=== PATIENT | male | born 1995 | race African-American/Black ===

== ENCOUNTER 2018-01-19 02:07 | Inpatient (IN) ==
[2018-01-19 02:27] LABS: Baso % (Auto) 0.3 % (0.0-2.0); Eos # (Auto) 0.1 th/mm3 (0.0-0.4); Eos % (Auto) 1.1 % (0.0-4.0); Hematocrit 41.6 % (39.0-51.0); Hemoglobin 13.6 gm/dL (13.0-17.0); Lymph % (Auto) 52.1 % (9.0-44.0); Mean Corpuscular HGB Conc 32.6 % (32.0-36.0); Mean Corpuscular Hemoglobin 30.7 pg (27.0-34.0); Mean Platelet Volume 7.6 fL (7.0-11.0); Mono # (Auto) 0.8 th/mm3 (0.0-0.9); Mono % (Auto) 10.9 % (0.0-8.0); Neut # (Auto) 2.7 th/mm3 (1.8-7.7); Neut % (Auto) 35.6 % (16.0-70.0); Platelet Count 296 th/mm3 (150-450); Red Blood Count 4.42 mil/mm3 (4.50-5.90); Red Cell Distribution Width 13.6 % (11.6-17.2); White Blood Count 7.7 th/mm3 (4.0-11.0)
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
[2018-01-19 02:37] LABS: Activated Partial Thrombo Time 21.7 sec (24.3-30.1); INR 1.1 Ratio; Prothrombin Time 11.4 sec (9.8-11.6)
[2018-01-19] MEDS ORDERED: Midazolam Inj 5 MG/ML 1 ML Vial ONE (02:40)
[2018-01-19] MEDS ORDERED: Heparin - SQ 10,000 UNITS/ML Vial SQ ONE (02:50)
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
[2018-01-19] MEDS ORDERED: ceFAZolin 2 GM IV; once IV.SIG ONE (03:00)
[2018-01-19] MEDS ORDERED: Diphtheria/Tetanus/Pertussis Vaccine Inj 0.5 ML Syringe IM ONE (03:00)
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
[2018-01-19 03:16] LABS: Carbon Dioxide 17.5 meq/L (21.0-32.0); Potassium 3.1 meq/L (3.5-5.1)
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
[2018-01-19] MEDS ORDERED: Heparin 10,000 UNITS/10 ML Vial (for IV use) ONE ×2 (03:28→04:13)
[2018-01-19] MEDS ORDERED: Propofol 1000 mg/100 ml Inj 1,000 MG/100 ML BOTTLE ONE (03:35)
[2018-01-19] MEDS ORDERED: fentaNYL Citrate Inj 100 MCG/2 ML Ampul ONE (03:47)
[2018-01-19 03:55] LABS: Baso % (Auto) 0.1 % (0.0-2.0); Eos % (Auto) 0.2 % (0.0-4.0); Hemoglobin 11.7 gm/dL (13.0-17.0); Mean Corpuscular HGB Conc 32.6 % (32.0-36.0); Mean Corpuscular Hemoglobin 29.4 pg (27.0-34.0); Mean Corpuscular Volume 90.1 fL (80.0-100.0); Mean Platelet Volume 7.4 fL (7.0-11.0); Mono # (Auto) 1.8 th/mm3 (0.0-0.9); Neut % (Auto) 75.7 % (16.0-70.0); Platelet Count 134 th/mm3 (150-450); Red Cell Distribution Width 14.5 % (11.6-17.2); White Blood Count 19.9 th/mm3 (4.0-11.0)
[2018-01-19 04:06] LABS: Activated Partial Thrombo Time 26.1 sec (24.3-30.1); INR 1.3 Ratio; Prothrombin Time 13.4 sec (9.8-11.6)
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
[2018-01-19 04:14] LABS: Calcium 7.7 mg/dL (8.5-10.1); Carbon Dioxide 18.6 meq/L (21.0-32.0); Potassium 4.2 meq/L (3.5-5.1)
[2018-01-19 04:28] LABS: ABG PCO2 43 mmHg (38-42); ABG PO2 255 mmHG (61-120)
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
[2018-01-19] MEDS ORDERED: HYDROmorphone PF Inj 2 MG/ML Vial ONE (06:03)
[2018-01-19] MEDS ORDERED: HYDROmorphone PF Inj 2 MG/ML Vial IV.PUSH SCH (06:10)
[2018-01-19] MEDS: fentaNYL 10 mcg/mL Premix Drip 2,500 MCG/250 ML BAG IV.SIG PRN ×2 (06:31→18:06)
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
[2018-01-19 06:51] LABS: ABG Base Excess -3.9 mmol/L (-2-2); ABG PCO2 39 mmHg (38-42); ABG PO2 230 mmHG (61-120)
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
[2018-01-19 07:10] LABS: Hematocrit 33.2 % (39.0-51.0); Hemoglobin 11.5 gm/dL (13.0-17.0)
[2018-01-19] MEDS: Pantoprazole Inj 40 MG Vial IV.PUSH SCH (08:39)
[2018-01-19] MEDS ORDERED: Propofol Inj 500 MG/50 ML Vial ONE (10:09)
--- NOTE | 2018-01-19 10:14 | ECG ---
Date Performed: 01/19/2018 Time Performed: 07:58:27 PTAGE: 89 years EKG: SINUS TACHYCARDIA ST / T-WAVE ABNORMALITY, CONSIDER LATERAL ISCHEMIA, CANNOT RULE OUT ACUTE LATERAL INJURY PATTERN ABNORMAL ECG NO PREVIOUS TRACING DOCTOR: Brennan Leon Interpretating Date/Time 01/19/2018 10:13:18
[2018-01-19] MEDS ORDERED: Potassium Phosphate 500 MG Soluble Tablet PO PRN ×2 (10:23)
[2018-01-19] MEDS ORDERED: Magnesium Sulfate Inj 2 GM in Sodium Chlor 0.9% Inj 96 ML IV.SIG PRN (10:23)
[2018-01-19] MEDS ORDERED: Potassium Chloride 25 MEQ Effervescent Tablet PO PRN (10:23)
[2018-01-19] MEDS ORDERED: Potassium Phosphate Inj 30 MMOL in Sodium Chlor 0.9% Inj 250 ML IV.SIG PRN (10:23)
[2018-01-19] MEDS ORDERED: Magnesium Sulfate Inj 4 GM in Sodium Chlor 0.9% Inj 92 ML IV.SIG PRN (10:23)
[2018-01-19] MEDS ORDERED: Sodium Phosphate Inj 30 MMOL in Sodium Chlor 0.9% Inj 250 ML IV.SIG PRN (10:23)
[2018-01-19] MEDS ORDERED: Potassium Chlor 40 mEq Premix 40 MEQ/100 ML PIGGYBACK IV.SIG PRN ×2 (10:23)
[2018-01-19] MEDS ORDERED: Magnesium Oxide 400 MG Tablet PO PRN (10:23)
[2018-01-19] MEDS ORDERED: Potassium Chlor 20 mEq Premix 20 MEQ/100 ML PIGGYBACK IV.SIG PRN ×2 (10:23)
[2018-01-19 11:17] LABS: Hematocrit 32.1 % (39.0-51.0); Hemoglobin 11.2 gm/dL (13.0-17.0)
[2018-01-19] MEDS: Propofol 1000 mg/100 ml Inj 1,000 MG/100 ML BOTTLE IV.CONT PRN ×4 (11:44→22:22)
[2018-01-19] MEDS ORDERED: Lidocaine PF 1% Inj 5 ML Syringe INFILTRATN ONE (12:00)
[2018-01-19] MEDS ORDERED: Succinylcholine Inj 200 MG/10 ML Vial IV.PUSH ONE (12:00)
[2018-01-19] MEDS ORDERED: Phenylephrine/NS 1000 MCG/10ML Syringe IV.PUSH ONE (12:00)
[2018-01-19] MEDS ORDERED: NORMOSOL R PH IV.CONT ONE (12:00)
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
[2018-01-19 17:32] LABS: Hematocrit 30.1 % (39.0-51.0); Hemoglobin 10.7 gm/dL (13.0-17.0)
[2018-01-19 19:09] LABS: Amphetamine Screen,Urine Neg (Neg); Barbiturate Screen,Urine Neg (Neg); Cannabinoid Screen,Urine Neg (Neg); Cocaine Screen,Urine Neg (Neg)
[2018-01-19 19:11] LABS: Amorphous Sediment,Urine Occasional /hpf; Bilirubin,Urine Negative (Negative); Clarity,Urine Turbid (Clear); Color,Urine Yellow (Yellw/Straw); Glucose,Urine (UA) Negative (Negative); Leukocyte Esterase,Urine Negative (Negative); Mucus,Urine Few /lpf (Occasional); Nitrite,Urine Negative (Negative); Specific Gravity,Urine 1.033 (1.002-1.035)
[2018-01-19 19:18] LABS: Opiate Screen,Urine Neg (Neg)
[2018-01-19] MEDS: Oral Hygiene Kit OROPHARYNG SCH (22:20)
[2018-01-19] MEDS: Famotidine 20 MG Tablet PO SCH ×2 (22:20→22:23)
[2018-01-19] MEDS: Senna/Docusate Sodium 8.6/50 MG Tablet PO SCH ×2 (22:20→22:24)
[2018-01-19] MEDS: Chlorhexidine 0.12% Oral Kit 15 ML UDC OROPHARYNG SCH (22:22)
[2018-01-20] MEDS ORDERED: Midazolam 50 MG/50 ML Inj 50 MG/50 ML BAG IV.CONT PRN (01:09)
[2018-01-20] MEDS: Oral Hygiene Kit OROPHARYNG SCH ×3 (01:40→20:18)
[2018-01-20] MEDS: Propofol 1000 mg/100 ml Inj 1,000 MG/100 ML BOTTLE IV.CONT PRN ×4 (01:41→08:47)
[2018-01-20] MEDS ORDERED: Chlorhexidine Gluconate 2% 1 Pack (2 Cloths) TOPICAL PRN (04:00)
[2018-01-20 04:28] LABS: Baso % (Auto) 0.1 % (0.0-2.0); Hematocrit 29.5 % (39.0-51.0); Hemoglobin 10.1 gm/dL (13.0-17.0); Lymph % (Auto) 13.4 % (9.0-44.0); Mean Corpuscular HGB Conc 34.3 % (32.0-36.0); Mean Corpuscular Hemoglobin 29.5 pg (27.0-34.0); Mean Corpuscular Volume 86.2 fL (80.0-100.0); Mono # (Auto) 2.5 th/mm3 (0.0-0.9); Mono % (Auto) 16.3 % (0.0-8.0); Neut # (Auto) 10.7 th/mm3 (1.8-7.7); Neut % (Auto) 70.2 % (16.0-70.0); Platelet Count 105 th/mm3 (150-450); Red Blood Count 3.42 mil/mm3 (4.50-5.90); White Blood Count 15.2 th/mm3 (4.0-11.0)
[2018-01-20 04:58] LABS: Albumin 2.6 g/dL (3.4-5.0); Calcium 7.3 mg/dL (8.5-10.1); Carbon Dioxide 25.1 meq/L (21.0-32.0); Total Protein 5.6 g/dL (6.4-8.2)
[2018-01-20 05:26] LABS: Platelet Morphology Normal (Normal)
[2018-01-20 05:45] LABS: ABG PCO2 37 mmHg (38-42); ABG PO2 227 mmHg (61-120)
[2018-01-20] MEDS: Enoxaparin Inj 40 MG/0.4 ML Syringe SQ SCH (05:55)
[2018-01-20] MEDS: Chlorhexidine Gluconate 2% 1 Pack (2 Cloths) TOPICAL SCH (05:57)
[2018-01-20] MEDS: fentaNYL 10 mcg/mL Premix Drip 2,500 MCG/250 ML BAG IV.SIG PRN (06:43)
[2018-01-20] MEDS: Pantoprazole Inj 40 MG Vial IV.PUSH SCH (08:47)
[2018-01-20] MEDS: Senna/Docusate Sodium 8.6/50 MG Tablet PO SCH ×2 (08:47→20:21)
[2018-01-20] MEDS: Famotidine 20 MG Tablet PO SCH ×2 (08:47→20:21)
[2018-01-20] MEDS: Dexmedetomidine Inj 200 MCG in Sodium Chlor 0.9% Inj 48 ML IV.SIG PRN ×3 (10:40→16:23)
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
[2018-01-20] MEDS: Chlorhexidine 0.12% Oral Kit 15 ML UDC OROPHARYNG SCH (20:20)
[2018-01-21] MEDS: Chlorhexidine 0.12% Oral Kit 15 ML UDC OROPHARYNG SCH ×3 (01:13→21:00)
[2018-01-21] MEDS: Oral Hygiene Kit OROPHARYNG SCH ×4 (01:13→15:41)
[2018-01-21] MEDS: fentaNYL 10 mcg/mL Premix Drip 2,500 MCG/250 ML BAG IV.SIG PRN (03:12)
[2018-01-21 04:19] LABS: Baso % (Auto) 0.2 % (0.0-2.0); Eos % (Auto) 0.1 % (0.0-4.0); Hematocrit 25.4 % (39.0-51.0); Hemoglobin 8.7 gm/dL (13.0-17.0); Lymph # (Auto) 2.3 th/mm3 (1.0-4.8); Lymph % (Auto) 14.7 % (9.0-44.0); Mean Corpuscular HGB Conc 34.1 % (32.0-36.0); Mean Corpuscular Hemoglobin 29.6 pg (27.0-34.0); Mean Platelet Volume 7.8 fL (7.0-11.0); Mono # (Auto) 2.4 th/mm3 (0.0-0.9); Mono % (Auto) 15.2 % (0.0-8.0); Neut # (Auto) 10.8 th/mm3 (1.8-7.7); Neut % (Auto) 69.8 % (16.0-70.0); Platelet Count 107 th/mm3 (150-450); Red Blood Count 2.93 mil/mm3 (4.50-5.90); Red Cell Distribution Width 14.4 % (11.6-17.2); White Blood Count 15.4 th/mm3 (4.0-11.0)
[2018-01-21 04:32] LABS: Calcium 7.5 mg/dL (8.5-10.1); Carbon Dioxide 28.5 meq/L (21.0-32.0); Potassium 3.8 meq/L (3.5-5.1)
[2018-01-21 05:18] LABS: Lymphocytes 11 % (9-44); Monocytes 5 % (0-8)
[2018-01-21 05:19] LABS: Platelet Morphology Normal (Normal); Stomatocytes 1+
[2018-01-21] MEDS: Enoxaparin Inj 40 MG/0.4 ML Syringe SQ SCH ×2 (05:30→08:13)
[2018-01-21] MEDS: Chlorhexidine Gluconate 2% 1 Pack (2 Cloths) TOPICAL SCH (06:27)
[2018-01-21] MEDS: Famotidine 20 MG Tablet PO SCH ×2 (09:11→20:29)
[2018-01-21] MEDS: Senna/Docusate Sodium 8.6/50 MG Tablet PO SCH ×2 (09:11→20:29)
[2018-01-21] MEDS: Pantoprazole Inj 40 MG Vial IV.PUSH SCH (09:11)
[2018-01-21] MEDS: HYDROmorphone PF Inj 2 MG/ML Vial IV.PUSH PRN ×3 (13:00→20:29)
[2018-01-21] MEDS: NEED HT & WT OTHER SCH ×21 (15:32→15:58)
[2018-01-21 15:48] LABS: Creatine Kinase MB 2.8 ng/mL (0.5-3.6)
[2018-01-21] MEDS ORDERED: Sodium Chlor 0.9% Inj 250 ML IV.SIG ONE (19:30)
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
[2018-01-21] MEDS: oxyCODONE/Acetaminophen 10/325 Tablet PO PRN (20:29)
[2018-01-22 00:03] LABS: Hemoglobin 7.8 gm/dL (13.0-17.0)
[2018-01-22] MEDS: oxyCODONE/Acetaminophen 10/325 Tablet PO PRN ×3 (00:45→21:01)
[2018-01-22] MEDS: HYDROmorphone PF Inj 2 MG/ML Vial IV.PUSH PRN ×4 (03:33→23:35)
[2018-01-22] MEDS: Chlorhexidine Gluconate 2% 1 Pack (2 Cloths) TOPICAL SCH (03:35)
[2018-01-22 04:24] LABS: Baso % (Auto) 0.2 % (0.0-2.0); Eos # (Auto) 0.1 th/mm3 (0.0-0.4); Eos % (Auto) 0.4 % (0.0-4.0); Hematocrit 22.8 % (39.0-51.0); Hemoglobin 7.7 gm/dL (13.0-17.0); Lymph # (Auto) 2.1 th/mm3 (1.0-4.8); Lymph % (Auto) 14.9 % (9.0-44.0); Mean Corpuscular HGB Conc 33.9 % (32.0-36.0); Mean Corpuscular Hemoglobin 29.7 pg (27.0-34.0); Mean Corpuscular Volume 87.6 fL (80.0-100.0); Mean Platelet Volume 7.9 fL (7.0-11.0); Mono # (Auto) 2.2 th/mm3 (0.0-0.9); Mono % (Auto) 15.4 % (0.0-8.0); Neut % (Auto) 69.1 % (16.0-70.0); Platelet Count 140 th/mm3 (150-450); Red Blood Count 2.61 mil/mm3 (4.50-5.90); Red Cell Distribution Width 14.4 % (11.6-17.2); White Blood Count 14.4 th/mm3 (4.0-11.0)
[2018-01-22 04:53] LABS: Anion Gap 10 meq/L (5-15); Blood Urea Nitrogen 8 mg/dL (7-18); Calcium 8.1 mg/dL (8.5-10.1); Carbon Dioxide 27.1 meq/L (21.0-32.0); Chloride 102 meq/L (98-107); Glomerular Filtration Rate Greater Than 89 mL/min (>89); Glucose,Random 121 mg/dL (74-106); Potassium 3.6 meq/L (3.5-5.1); Sodium 139 meq/L (136-145)
[2018-01-22 05:21] LABS: Creatine Kinase 8076 U/L (39-308)
[2018-01-22 05:36] LABS: Creatine Kinase MB 1.7 ng/mL (0.5-3.6)
[2018-01-22 06:48] LABS: Lymphocytes 14 % (9-44); Monocytes 11 % (0-8)
[2018-01-22 06:49] LABS: Platelet Morphology Normal (Normal)
[2018-01-22] MEDS: Enoxaparin Inj 40 MG/0.4 ML Syringe SQ SCH (08:02)
[2018-01-22] MEDS: Chlorhexidine 0.12% Oral Kit 15 ML UDC OROPHARYNG SCH ×2 (08:38→23:03)
[2018-01-22] MEDS: Famotidine 20 MG Tablet PO SCH ×2 (08:39→21:01)
[2018-01-22] MEDS: Senna/Docusate Sodium 8.6/50 MG Tablet PO SCH ×2 (08:39→21:01)
[2018-01-22] MEDS ORDERED: Sodium Chlor 0.9% Inj 250 ML IV.SIG SCH (10:00)
[2018-01-22] MEDS ORDERED: Lidocaine PF 1% Inj 5 ML Syringe INFILTRATN ONE (12:00)
[2018-01-22] MEDS ORDERED: Glycopyrrolate Inj 1 MG/5 ML Syringe IV.PUSH ONE (12:00)
[2018-01-22] MEDS ORDERED: Neostigmine Inj 5 MG/5 ML Syringe IV.PUSH ONE (12:00)
[2018-01-22] MEDS ORDERED: *morphine SULFATE 4 MG/ML PERIprocedure ONLY ONE ×2 (14:11→15:20)
[2018-01-22] MEDS ORDERED: *Labetalol HCl Inj 100 MG/20 ML Vial PERIprocedural Use ONLY IV.PUSH ONE (14:59)
[2018-01-22] MEDS ORDERED: fentaNYL Citrate Inj 100 MCG/2 ML Ampul ONE (15:41)
[2018-01-22 18:11] LABS: Creatine Kinase MB 1.5 ng/mL (0.5-3.6)
[2018-01-22] MEDS: Ketorolac Inj 30 MG/ML (IVP) Vial IV.PUSH PRN (22:20)
[2018-01-23] MEDS: Enoxaparin Inj 40 MG/0.4 ML Syringe SQ SCH (06:26)
[2018-01-23] MEDS: Ketorolac Inj 30 MG/ML (IVP) Vial IV.PUSH PRN (06:27)
[2018-01-23] MEDS: Chlorhexidine Gluconate 2% 1 Pack (2 Cloths) TOPICAL SCH (06:28)
[2018-01-23] MEDS: HYDROmorphone PF Inj 2 MG/ML Vial IV.PUSH PRN ×3 (09:23→22:00)
[2018-01-23] MEDS: Famotidine 20 MG Tablet PO SCH ×2 (09:26→20:59)
[2018-01-23] MEDS: Senna/Docusate Sodium 8.6/50 MG Tablet PO SCH ×2 (09:27→20:59)
[2018-01-23] MEDS ORDERED: Sodium Chloride 0.65% Nasal Drops/Spray 30 ML Bottle EACH NARE PRN (10:04)
[2018-01-23 10:35] LABS: Baso % (Auto) 0.1 % (0.0-2.0); Eos # (Auto) 0.1 th/mm3 (0.0-0.4); Eos % (Auto) 0.7 % (0.0-4.0); Hematocrit 23.9 % (39.0-51.0); Hemoglobin 8.2 gm/dL (13.0-17.0); Lymph # (Auto) 1.6 th/mm3 (1.0-4.8); Lymph % (Auto) 13.4 % (9.0-44.0); Mean Corpuscular HGB Conc 34.3 % (32.0-36.0); Mean Corpuscular Hemoglobin 29.8 pg (27.0-34.0); Mean Corpuscular Volume 86.9 fL (80.0-100.0); Mean Platelet Volume 7.5 fL (7.0-11.0); Mono # (Auto) 1.7 th/mm3 (0.0-0.9); Mono % (Auto) 14.4 % (0.0-8.0); Neut # (Auto) 8.7 th/mm3 (1.8-7.7); Neut % (Auto) 71.4 % (16.0-70.0); Platelet Count 213 th/mm3 (150-450); Red Blood Count 2.75 mil/mm3 (4.50-5.90); Red Cell Distribution Width 14.2 % (11.6-17.2); White Blood Count 12.2 th/mm3 (4.0-11.0)
[2018-01-23 11:10] LABS: Anion Gap 8 meq/L (5-15); Blood Urea Nitrogen 10 mg/dL (7-18); Calcium 8.4 mg/dL (8.5-10.1); Carbon Dioxide 29.4 meq/L (21.0-32.0); Chloride 103 meq/L (98-107); Glomerular Filtration Rate Greater Than 89 mL/min (>89); Glucose,Random 108 mg/dL (74-106); Potassium 3.5 meq/L (3.5-5.1); Sodium 140 meq/L (136-145)
[2018-01-23 11:15] LABS: Creatine Kinase 4052 U/L (39-308)
[2018-01-23] MEDS: Chlorhexidine 0.12% Oral Kit 15 ML UDC OROPHARYNG SCH (11:23)
[2018-01-23] MEDS: Ketorolac Inj 30 MG/ML (IVP) Vial IV.PUSH SCH ×3 (11:32→21:00)
[2018-01-23] MEDS: Metoprolol Tartrate 25 MG Tablet PO SCH ×2 (11:33→20:58)
[2018-01-23 11:34] LABS: Creatine Kinase MB 1.2 ng/mL (0.5-3.6)
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
[2018-01-23] MEDS: Enoxaparin Inj 30 MG/0.3 ML Syringe SQ SCH (20:58)
[2018-01-24] MEDS: HYDROmorphone PF Inj 2 MG/ML Vial IV.PUSH PRN ×3 (03:25→21:19)
[2018-01-24] MEDS: Ketorolac Inj 30 MG/ML (IVP) Vial IV.PUSH SCH ×5 (03:26→22:54)
[2018-01-24 08:24] LABS: Baso % (Auto) 0.3 % (0.0-2.0); Eos # (Auto) 0.1 th/mm3 (0.0-0.4); Eos % (Auto) 1.2 % (0.0-4.0); Hematocrit 23.8 % (39.0-51.0); Hemoglobin 8.1 gm/dL (13.0-17.0); Lymph # (Auto) 1.7 th/mm3 (1.0-4.8); Lymph % (Auto) 14.5 % (9.0-44.0); Mean Corpuscular HGB Conc 33.9 % (32.0-36.0); Mean Corpuscular Hemoglobin 30.4 pg (27.0-34.0); Mean Corpuscular Volume 89.5 fL (80.0-100.0); Mean Platelet Volume 7.8 fL (7.0-11.0); Mono # (Auto) 1.7 th/mm3 (0.0-0.9); Mono % (Auto) 14.6 % (0.0-8.0); Neut % (Auto) 69.4 % (16.0-70.0); Platelet Count 260 th/mm3 (150-450); Red Blood Count 2.66 mil/mm3 (4.50-5.90); Red Cell Distribution Width 14.4 % (11.6-17.2); White Blood Count 11.5 th/mm3 (4.0-11.0)
[2018-01-24 08:47] LABS: Anion Gap 11 meq/L (5-15); Blood Urea Nitrogen 14 mg/dL (7-18); Calcium 8.4 mg/dL (8.5-10.1); Carbon Dioxide 25.4 meq/L (21.0-32.0); Chloride 102 meq/L (98-107); Glomerular Filtration Rate Greater Than 89 mL/min (>89); Glucose,Random 91 mg/dL (74-106); Potassium 3.6 meq/L (3.5-5.1); Sodium 138 meq/L (136-145)
[2018-01-24 09:02] LABS: Creatine Kinase 2423 U/L (39-308)
[2018-01-24 09:17] LABS: Creatine Kinase MB 1.1 ng/mL (0.5-3.6)
[2018-01-24] MEDS: Enoxaparin Inj 30 MG/0.3 ML Syringe SQ SCH ×2 (09:48→20:22)
[2018-01-24] MEDS: Metoprolol Tartrate 25 MG Tablet PO SCH ×2 (09:48→20:23)
[2018-01-24] MEDS: Famotidine 20 MG Tablet PO SCH ×2 (09:49→20:23)
[2018-01-24] MEDS: amLODIPine 5 MG Tablet PO SCH (09:49)
[2018-01-24] MEDS: Chlorhexidine Gluconate 2% 1 Pack (2 Cloths) TOPICAL SCH (09:49)
[2018-01-24] MEDS: Senna/Docusate Sodium 8.6/50 MG Tablet PO SCH ×2 (09:49→20:22)
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
[2018-01-24] MEDS ORDERED: Chlorhexidine Gluconate 2% 1 Pack (2 Cloths) TOPICAL SCH (23:15)
[2018-01-24] MEDS ORDERED: Sodium Chlor 0.9% Inj 500 ML IV.SIG SCH (23:45)
[2018-01-25] MEDS: Ketorolac Inj 30 MG/ML (IVP) Vial IV.PUSH SCH ×5 (04:02→22:31)
[2018-01-25] MEDS: HYDROmorphone PF Inj 2 MG/ML Vial IV.PUSH PRN ×3 (05:16→20:43)
[2018-01-25 08:26] LABS: CKMB Percent 0.1 % (0.0-4.0)
[2018-01-25] MEDS: Enoxaparin Inj 30 MG/0.3 ML Syringe SQ SCH (09:39)
[2018-01-25] MEDS: Metoprolol Tartrate 25 MG Tablet PO SCH ×2 (09:39→20:43)
[2018-01-25] MEDS: amLODIPine 5 MG Tablet PO SCH (09:39)
[2018-01-25] MEDS: Senna/Docusate Sodium 8.6/50 MG Tablet PO SCH ×2 (09:39→20:43)
[2018-01-25] MEDS: Famotidine 20 MG Tablet PO SCH ×2 (09:39→20:43)
[2018-01-25] MEDS ORDERED: Phenylephrine/NS 1000 MCG/10ML Syringe IV.PUSH ONE (12:00)
[2018-01-25] MEDS ORDERED: Lidocaine PF 1% Inj 5 ML Syringe INFILTRATN ONE (12:00)
[2018-01-25] MEDS ORDERED: HYDROmorphone PF Inj 2 MG/ML Vial ONE (12:45)
[2018-01-25] MEDS ORDERED: ceFAZolin 2 GM Premix Inj 2 GM/50 ML PIGGYBACK IV.SIG ONE (13:07)
--- NOTE | 2018-01-25 13:07 | P.OP ---
- Preoperative Diagnosis (1) Open wound, lower leg - Postoperative Diagnosis (1) Open wound, lower leg Date of procedure: 01/25/18 Procedure: Washout ,wound vac application open wounds x2 left LE Anesthesia: GETA Surgeon: Adeline Diaz MD Estimated blood loss (mL): 5 Operation and Findings: Indication for the procedure:22 y.o male open wound by s/p fasciotomy for compartment syndrome .Proceeded with washout wound VAC application Technique:Patient was brought into the operating room and identified as the patient.After administration of GA ,patient's left LE was sterilely prepped and draped.Wound vac was taken down-muscles were inspected at both wounds.Distally on both wounds there are some slightly dusky appearing muscle- these however are clearly viable.There is large amount of edema and fluid.Washout was performed and wound vac applied using the usual technique.Mo wrap in top of the wound vac.
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
[2018-01-25] MEDS ORDERED: fentaNYL Citrate Inj 100 MCG/2 ML Ampul ONE ×2 (13:12)
[2018-01-25] MEDS ORDERED: Magnesium Citrate Liq 300 ML Bottle PO ONE (15:00)
[2018-01-26 04:13] LABS: Baso % (Auto) 0.2 % (0.0-2.0); Eos # (Auto) 0.1 th/mm3 (0.0-0.4); Eos % (Auto) 0.8 % (0.0-4.0); Hematocrit 24.6 % (39.0-51.0); Hemoglobin 8.3 gm/dL (13.0-17.0); Lymph # (Auto) 1.4 th/mm3 (1.0-4.8); Mean Corpuscular HGB Conc 33.6 % (32.0-36.0); Mean Corpuscular Hemoglobin 29.5 pg (27.0-34.0); Mean Platelet Volume 7.1 fL (7.0-11.0); Mono # (Auto) 1.6 th/mm3 (0.0-0.9); Mono % (Auto) 13.7 % (0.0-8.0); Neut # (Auto) 8.8 th/mm3 (1.8-7.7); Neut % (Auto) 73.3 % (16.0-70.0); Platelet Count 419 th/mm3 (150-450); Red Cell Distribution Width 14.3 % (11.6-17.2); White Blood Count 11.9 th/mm3 (4.0-11.0)
[2018-01-26] MEDS: HYDROmorphone PF Inj 2 MG/ML Vial IV.PUSH PRN ×3 (04:36→23:33)
[2018-01-26] MEDS: Ketorolac Inj 30 MG/ML (IVP) Vial IV.PUSH SCH ×4 (04:36→21:51)
[2018-01-26 04:37] LABS: Anion Gap 10 meq/L (5-15); Blood Urea Nitrogen 16 mg/dL (7-18); Calcium 8.1 mg/dL (8.5-10.1); Carbon Dioxide 26.2 meq/L (21.0-32.0); Chloride 106 meq/L (98-107); Glomerular Filtration Rate Greater Than 89 mL/min (>89); Glucose,Random 112 mg/dL (74-106); Potassium 3.8 meq/L (3.5-5.1); Sodium 142 meq/L (136-145)
[2018-01-26 04:50] LABS: Creatine Kinase 1216 U/L (39-308)
[2018-01-26 05:19] LABS: CKMB Percent 0.1 % (0.0-4.0); Creatine Kinase MB 0.9 ng/mL (0.5-3.6)
[2018-01-26 06:48] LABS: Eosinophils 2 % (0-4); Lymphocytes 7 % (9-44); Metamyelocytes 1 % (0-1); Monocytes 12 % (0-8); Tallied Nucleated RBC 1 (0-0)
[2018-01-26 06:49] LABS: Platelet Estimate Normal (Normal); Platelet Morphology Normal (Normal)
[2018-01-26] MEDS: amLODIPine 5 MG Tablet PO SCH (09:50)
[2018-01-26] MEDS: Famotidine 20 MG Tablet PO SCH ×2 (09:51→21:43)
[2018-01-26] MEDS: Metoprolol Tartrate 25 MG Tablet PO SCH ×2 (09:51→21:42)
[2018-01-26] MEDS: Senna/Docusate Sodium 8.6/50 MG Tablet PO SCH ×2 (09:52→21:42)
[2018-01-26] MEDS: Enoxaparin Inj 30 MG/0.3 ML Syringe SQ SCH ×2 (12:03→21:43)
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
[2018-01-26] MEDS: Acetaminophen 325 MG Tablet PO PRN (21:43)
[2018-01-27] MEDS: Ketorolac Inj 30 MG/ML (IVP) Vial IV.PUSH SCH (05:28)
[2018-01-27] MEDS: Enoxaparin Inj 30 MG/0.3 ML Syringe SQ SCH ×2 (08:23→20:05)
[2018-01-27] MEDS: Famotidine 20 MG Tablet PO SCH ×2 (08:26→20:05)
[2018-01-27] MEDS: amLODIPine 5 MG Tablet PO SCH (08:26)
[2018-01-27] MEDS: Metoprolol Tartrate 25 MG Tablet PO SCH ×2 (08:26→20:05)
[2018-01-27] MEDS: Senna/Docusate Sodium 8.6/50 MG Tablet PO SCH ×2 (08:27→20:05)
[2018-01-27] MEDS: ceFAZolin 2 GM Premix Inj 2 GM/50 ML PIGGYBACK IV.SIG SCH ×2 (11:54→20:06)
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
[2018-01-27] MEDS: HYDROmorphone PF Inj 2 MG/ML Vial IV.PUSH PRN ×2 (13:40→20:07)
[2018-01-27] MEDS ORDERED: Benzocaine/Menthol 15 MG/3.6 MG SF Lozenge BUCCAL PRN (17:46)
[2018-01-27] MEDS: Acetaminophen 325 MG Tablet PO PRN (20:05)
[2018-01-28] MEDS: ceFAZolin 2 GM Premix Inj 2 GM/50 ML PIGGYBACK IV.SIG SCH (03:04)
[2018-01-28] MEDS: HYDROmorphone PF Inj 2 MG/ML Vial IV.PUSH PRN ×6 (03:59→23:50)
[2018-01-28 07:00] LABS: Baso % (Auto) 0.2 % (0.0-2.0); Eos # (Auto) 0.1 th/mm3 (0.0-0.4); Eos % (Auto) 0.7 % (0.0-4.0); Hematocrit 27.5 % (39.0-51.0); Hemoglobin 9.2 gm/dL (13.0-17.0); Lymph # (Auto) 1.4 th/mm3 (1.0-4.8); Mean Corpuscular HGB Conc 33.3 % (32.0-36.0); Mean Corpuscular Hemoglobin 29.2 pg (27.0-34.0); Mean Corpuscular Volume 87.7 fL (80.0-100.0); Mean Platelet Volume 7.2 fL (7.0-11.0); Mono # (Auto) 2.3 th/mm3 (0.0-0.9); Mono % (Auto) 19.5 % (0.0-8.0); Neut # (Auto) 7.8 th/mm3 (1.8-7.7); Neut % (Auto) 67.6 % (16.0-70.0); Platelet Count 659 th/mm3 (150-450); Red Blood Count 3.14 mil/mm3 (4.50-5.90); Red Cell Distribution Width 14.4 % (11.6-17.2); White Blood Count 11.6 th/mm3 (4.0-11.0)
[2018-01-28 07:13] LABS: Calcium 8.5 mg/dL (8.5-10.1); Carbon Dioxide 25.8 meq/L (21.0-32.0); Potassium 4.4 meq/L (3.5-5.1)
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
[2018-01-28 08:24] LABS: Lymphocytes 5 % (9-44); Metamyelocytes 1 % (0-1); Monocytes 26 % (0-8)
[2018-01-28 08:26] LABS: Platelet Morphology Normal (Normal); RBC Morphology Normal (Normal)
[2018-01-28] MEDS: Enoxaparin Inj 30 MG/0.3 ML Syringe SQ SCH ×2 (08:45→20:39)
[2018-01-28] MEDS: amLODIPine 5 MG Tablet PO SCH (08:45)
[2018-01-28] MEDS: Metoprolol Tartrate 25 MG Tablet PO SCH (08:45)
[2018-01-28] MEDS: Famotidine 20 MG Tablet PO SCH ×2 (08:45→20:40)
[2018-01-28] MEDS: Senna/Docusate Sodium 8.6/50 MG Tablet PO SCH ×2 (08:46→20:40)
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
[2018-01-28] MEDS: Gabapentin 300 MG Capsule PO SCH (17:22)
[2018-01-29] MEDS: HYDROmorphone PF Inj 2 MG/ML Vial IV.PUSH PRN ×3 (03:20→21:36)
[2018-01-29 04:47] LABS: Baso % (Auto) 0.2 % (0.0-2.0); Eos % (Auto) 0.2 % (0.0-4.0); Hematocrit 27.9 % (39.0-51.0); Hemoglobin 9.5 gm/dL (13.0-17.0); Lymph # (Auto) 1.9 th/mm3 (1.0-4.8); Lymph % (Auto) 12.9 % (9.0-44.0); Mean Corpuscular HGB Conc 33.9 % (32.0-36.0); Mean Corpuscular Hemoglobin 29.5 pg (27.0-34.0); Mean Platelet Volume 6.9 fL (7.0-11.0); Mono # (Auto) 2.9 th/mm3 (0.0-0.9); Mono % (Auto) 19.6 % (0.0-8.0); Neut # (Auto) 9.8 th/mm3 (1.8-7.7); Neut % (Auto) 67.1 % (16.0-70.0); Platelet Count 637 th/mm3 (150-450); Red Blood Count 3.21 mil/mm3 (4.50-5.90); Red Cell Distribution Width 14.5 % (11.6-17.2); White Blood Count 14.6 th/mm3 (4.0-11.0)
[2018-01-29 05:06] LABS: Calcium 8.5 mg/dL (8.5-10.1); Carbon Dioxide 25.9 meq/L (21.0-32.0); Potassium 4.5 meq/L (3.5-5.1)
[2018-01-29] MEDS: Metoprolol Tartrate 25 MG Tablet PO SCH ×3 (05:17→22:31)
[2018-01-29 05:31] LABS: Lymphocytes 15 % (9-44); Metamyelocytes 3 % (0-1); Monocytes 5 % (0-8)
[2018-01-29 05:32] LABS: Platelet Morphology Normal (Normal)
[2018-01-29] MEDS: Enoxaparin Inj 30 MG/0.3 ML Syringe SQ SCH ×2 (08:09→22:32)
[2018-01-29] MEDS: Senna/Docusate Sodium 8.6/50 MG Tablet PO SCH ×2 (08:10→22:38)
[2018-01-29] MEDS: Gabapentin 300 MG Capsule PO SCH ×3 (08:10→17:18)
[2018-01-29] MEDS: Famotidine 20 MG Tablet PO SCH ×2 (08:12→22:31)
[2018-01-29] MEDS: amLODIPine 5 MG Tablet PO SCH (08:12)
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
[2018-01-29] MEDS ORDERED: Lidocaine PF 1% Inj 5 ML Syringe INFILTRATN ONE (12:00)
[2018-01-29] MEDS ORDERED: Phenylephrine/NS 1000 MCG/10ML Syringe IV.PUSH ONE (12:00)
[2018-01-29] MEDS ORDERED: fentaNYL Citrate Inj 100 MCG/2 ML Ampul ONE (20:51)
[2018-01-29] MEDS ORDERED: *morphine SULFATE 10 MG/ML PERIprocedure ONLY ONE (21:10)
[2018-01-30] MEDS: HYDROmorphone PF Inj 2 MG/ML Vial IV.PUSH PRN ×3 (00:38→14:00)
[2018-01-30 06:26] LABS: Baso % (Auto) 0.1 % (0.0-2.0); Hematocrit 29.5 % (39.0-51.0); Hemoglobin 9.7 gm/dL (13.0-17.0); Lymph # (Auto) 1.4 th/mm3 (1.0-4.8); Lymph % (Auto) 8.5 % (9.0-44.0); Mean Corpuscular HGB Conc 33.1 % (32.0-36.0); Mean Corpuscular Hemoglobin 28.5 pg (27.0-34.0); Mean Corpuscular Volume 86.3 fL (80.0-100.0); Mean Platelet Volume 7.1 fL (7.0-11.0); Mono # (Auto) 2.4 th/mm3 (0.0-0.9); Mono % (Auto) 15.3 % (0.0-8.0); Neut # (Auto) 12.2 th/mm3 (1.8-7.7); Neut % (Auto) 76.1 % (16.0-70.0); Platelet Count 696 th/mm3 (150-450); Red Blood Count 3.42 mil/mm3 (4.50-5.90); Red Cell Distribution Width 14.3 % (11.6-17.2)
[2018-01-30 06:56] LABS: Calcium 8.9 mg/dL (8.5-10.1); Carbon Dioxide 25.6 meq/L (21.0-32.0); Potassium 4.8 meq/L (3.5-5.1)
[2018-01-30] MEDS: Metoprolol Tartrate 25 MG Tablet PO SCH ×2 (08:35→22:54)
[2018-01-30] MEDS: amLODIPine 5 MG Tablet PO SCH (08:35)
[2018-01-30] MEDS: Enoxaparin Inj 30 MG/0.3 ML Syringe SQ SCH ×2 (08:35→22:55)
[2018-01-30] MEDS: Gabapentin 300 MG Capsule PO SCH ×3 (08:35→17:07)
[2018-01-30] MEDS: Famotidine 20 MG Tablet PO SCH ×2 (08:36→22:54)
[2018-01-30] MEDS: Senna/Docusate Sodium 8.6/50 MG Tablet PO SCH ×2 (08:36→22:54)
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
[2018-01-30] MEDS: Ketorolac Inj 30 MG/ML (IVP) Vial IV.PUSH SCH ×2 (18:49→23:00)
[2018-01-31 04:44] LABS: Baso % (Auto) 0.3 % (0.0-2.0); Eos # (Auto) 0.1 th/mm3 (0.0-0.4); Eos % (Auto) 0.4 % (0.0-4.0); Hematocrit 28.6 % (39.0-51.0); Hemoglobin 9.6 gm/dL (13.0-17.0); Lymph % (Auto) 14.7 % (9.0-44.0); Mean Corpuscular HGB Conc 33.6 % (32.0-36.0); Mean Corpuscular Hemoglobin 28.9 pg (27.0-34.0); Mean Corpuscular Volume 86.1 fL (80.0-100.0); Mean Platelet Volume 6.8 fL (7.0-11.0); Mono % (Auto) 15.2 % (0.0-8.0); Neut # (Auto) 9.3 th/mm3 (1.8-7.7); Neut % (Auto) 69.4 % (16.0-70.0); Platelet Count 643 th/mm3 (150-450); Red Blood Count 3.32 mil/mm3 (4.50-5.90); Red Cell Distribution Width 14.6 % (11.6-17.2); White Blood Count 13.4 th/mm3 (4.0-11.0)
[2018-01-31 04:59] LABS: Calcium 8.2 mg/dL (8.5-10.1); Carbon Dioxide 28.6 meq/L (21.0-32.0); Potassium 4.3 meq/L (3.5-5.1)
[2018-01-31] MEDS: Ketorolac Inj 30 MG/ML (IVP) Vial IV.PUSH SCH ×3 (07:23→19:45)
[2018-01-31] MEDS ORDERED: Magnesium Citrate Liq 300 ML Bottle PO ONE (09:00)
[2018-01-31] MEDS: Enoxaparin Inj 30 MG/0.3 ML Syringe SQ SCH ×2 (09:30→21:52)
[2018-01-31] MEDS: Famotidine 20 MG Tablet PO SCH ×2 (09:31→21:53)
[2018-01-31] MEDS: Gabapentin 300 MG Capsule PO SCH ×3 (09:31→19:46)
[2018-01-31] MEDS: Metoprolol Tartrate 25 MG Tablet PO SCH ×2 (09:31→21:53)
[2018-01-31] MEDS: amLODIPine 5 MG Tablet PO SCH (09:31)
[2018-01-31] MEDS: Senna/Docusate Sodium 8.6/50 MG Tablet PO SCH ×2 (09:34→21:59)
[2018-01-31] MEDS: HYDROmorphone PF Inj 2 MG/ML Vial IV.PUSH PRN ×2 (11:41→14:16)
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
[2018-01-31] MEDS ORDERED: HYDROmorphone PF Inj 2 MG/ML Vial IV.PUSH PRN (16:00)
--- NOTE | 2018-01-31 16:23 | P.PNWCN ---
Wound Care Nurse Consult Description: Wound consult ordered by Faviola AUSTIN for wound vac management. Communicated with: Demetrius Watson RNregor [facility] Recommendation: Left Groin incision 1. Cleanse with normal saline only (wound cleanser deactivated Santyl) 2. Skin prep periwound ,Apply Santyl 2mm thick to yellow/brown necrotic tissue 3. Cover with Maxorb ll cut to fit incision cover with dry dressing 4. Change dressing daily or as needed for exudate/dislodgement. Left lower extremity 1. Cleanse wounds with normal saline pat dry 2. Skin prep periwound apply drape to periwound 3. Cover exposed tendon/fascia/vessels with oil emulsion adaptic gauze 4. Gently apply black GranuFoam seal with draping apply track pad and begin suction @125mmHg low continuous. 5. Wound Vac to be changed every Sunday and by WOUND CARE NURSE. Additional information: Patient was seen today by teletypewriter operator and Shirley ENCISO [address] north.Patient alert and oriented x4 resting in be with no current complaints.Pain medication administered prior to writers arrival.Shirley ENCISO changing dressing with teletypewriter operator present.Account Development Executive was able to visualize left groin incision with armen intact.Account Development Executive noted diffuse areas of dehiscence with yellow /brown moist slough present.induration noted ~6cm circumferentially to Dehisced incision.Account Development Executive performed mechanical debridement per patients tolerance.Moist to dry dressing applied.Wound vac turned off.Sponge flooded with normal saline to loosen.Dressing removed with difficulty noted teletypewriter operator removed several armen to periwound sponge.Black GranuFoam noted to be adhered to exposed tendon/ fascia.Wounds cleansed with normal saline pat dry .Skin prep applied to periwound and wounds were then window paned with draping.Adaptic gauze applied to exposed tendon/fascia hypergranulated tissue.Single layer of black GranuFoam applied to wound base covered with drape.Single track pad applied to each wound and connected with Y connector suction started @ 125 mmHg low continuous suction with low leak noted Mo bandage applied to support.Patient tolerated wound care with difficult but was able to complete dressing change. Wound/Pressure Injury - Patient Status Premedicated for Pain Prior to Dressing Change: Yes - Wound r Tape Type: Silk Right Hip Wound Dressing Change Date: 01/31/18 Left Lower Leg Wound Assessment: Ongoing Wound Type: Traumatic Wound Is This a Chronic Wound: No Requested from Provider a Wound Care Consult: No (Oneida ENCISO,[facility] seen 01/31) Wound Bed Appearance: Red Surrounding Tissue Appearance: [place]adoo Surrounding Tissue Temperature: Cool Drainage Description: Serosanguinous Drainage Amount: Moderate Drainage Odor: No Odor Dressing Status: Dry & Intact, Changed Cleansing Solution: Saline Wound Packing Type: Woundvac Sponge Primary Dressing: Negative Pressure Wound Dressing Wound Dressing Change Date: 01/31/18 Left Groin Wound Assessment: Ongoing Wound Type: Traumatic Wound Is This a Chronic Wound: No Requested from Provider a Wound Care Consult: No Wound Bed Appearance: Necrotic, [place], Yellow Surrounding Tissue Appearance: Edematous, Erythema, Indurated Surrounding Tissue Temperature: Warm Drainage Description: Serosanguinous Drainage Amount: Scant Drainage Odor: Slight Odor Dressing Status: Dry & Intact, Changed Cleansing Solution: Saline Primary Dressing: Gauze Pad Cover Dressing: Adhesive Dressing Wound Dressing Change Date: 01/31/18 Right Elbow Is This a Chronic Wound: No Requested from Provider a Wound Care Consult: No Wound Dressing Change Date: 01/29/18 Right Flank Is This a Chronic Wound: No Requested from Provider a Wound Care Consult: No Wound Dressing Change Date: 01/29/18 Wound Vac - Wound Vac Left Lower Leg Pressure Setting (mmHg): 125 Mode Setting: Continuous Drainage Description: Serosanguinous Foam type: Black Right Flank Pressure Setting (mmHg): 125 Mode Setting: Continuous Drainage Description: Serosanguinous Foam type: Black Incision - Patient Status Premedicated for Pain Prior to Dressing Change: Yes - Incision Left Groin Incision Assessment: Ongoing Incision Type: Incision Incision Description: Armen Incision Bed Appearance: Necrotic, Yellow Surrounding Tissue Appearance: Erythema, Indurated, Taut Surrounding Tissue Temperature: Cool Drainage Description: Serosanguinous Drainage Amount: Minimal Drainage Odor: Slight Odor Incision Dressing Status: Dry & Intact, Changed Incision Cleaning Solution: Saline Primary Dressing: Gauze Pad Cover Dressing: Absorbant Pad, Adhesive Dressing Incision Dressing Change Date: 01/31/18 Incision/Surgery Date: 01/19/18 Right Arm Incision/Surgery Date: 01/19/18 Left Lower Leg Cover Dressing: Other Other Cover Dressing: Wound VAC Incision/Surgery Date: 01/19/18 Left Leg Other Cover Dressing: Wound VAC in place
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
[2018-01-31] MEDS: oxyCODONE/Acetaminophen 10/325 Tablet PO PRN (21:53)
[2018-01-31] MEDS: Acetaminophen 325 MG Tablet PO PRN (21:55)
[2018-02-01] MEDS: Ketorolac Inj 30 MG/ML (IVP) Vial IV.PUSH SCH ×4 (01:04→19:58)
[2018-02-01] MEDS: oxyCODONE/Acetaminophen 10/325 Tablet PO PRN ×2 (06:12→20:24)
[2018-02-01] MEDS: Gabapentin 300 MG Capsule PO SCH ×3 (11:37→18:58)
[2018-02-01] MEDS: Famotidine 20 MG Tablet PO SCH ×2 (11:37→20:23)
[2018-02-01] MEDS: Metoprolol Tartrate 25 MG Tablet PO SCH ×2 (11:37→20:23)
[2018-02-01] MEDS: Senna/Docusate Sodium 8.6/50 MG Tablet PO SCH ×2 (11:38→20:29)
[2018-02-01] MEDS: Enoxaparin Inj 30 MG/0.3 ML Syringe SQ SCH ×2 (11:38→20:24)
[2018-02-01] MEDS: amLODIPine 5 MG Tablet PO SCH (11:38)
[2018-02-01] MEDS: Ciprofloxacin 500 MG Tablet PO SCH ×2 (11:49→20:23)
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
[2018-02-02] MEDS: Ketorolac Inj 30 MG/ML (IVP) Vial IV.PUSH SCH ×4 (01:01→17:45)
[2018-02-02 04:30] LABS: Baso # (Auto) 0.1 th/mm3 (0.0-0.2); Baso % (Auto) 0.4 % (0.0-2.0); Eos # (Auto) 0.2 th/mm3 (0.0-0.4); Eos % (Auto) 1.6 % (0.0-4.0); Hematocrit 24.4 % (39.0-51.0); Hemoglobin 8.3 gm/dL (13.0-17.0); Lymph # (Auto) 2.2 th/mm3 (1.0-4.8); Lymph % (Auto) 17.5 % (9.0-44.0); Mean Corpuscular HGB Conc 33.9 % (32.0-36.0); Mean Corpuscular Hemoglobin 29.3 pg (27.0-34.0); Mean Corpuscular Volume 86.4 fL (80.0-100.0); Mean Platelet Volume 6.9 fL (7.0-11.0); Mono # (Auto) 1.3 th/mm3 (0.0-0.9); Mono % (Auto) 10.2 % (0.0-8.0); Neut # (Auto) 8.9 th/mm3 (1.8-7.7); Neut % (Auto) 70.3 % (16.0-70.0); Platelet Count 725 th/mm3 (150-450); Red Blood Count 2.82 mil/mm3 (4.50-5.90); Red Cell Distribution Width 14.6 % (11.6-17.2); White Blood Count 12.7 th/mm3 (4.0-11.0)
[2018-02-02 04:54] LABS: Alkaline Phosphatase 97 U/L (45-117); Total Protein 7.1 g/dL (6.4-8.2)
[2018-02-02 04:57] LABS: Alanine Aminotransferase 102 U/L (12-78); Albumin 2.1 g/dL (3.4-5.0); Anion Gap 5 meq/L (5-15); Aspartate Aminotransferase 63 U/L (15-37); Blood Urea Nitrogen 26 mg/dL (7-18); Calcium 8.4 mg/dL (8.5-10.1); Chloride 106 meq/L (98-107); Glomerular Filtration Rate 56 mL/min (>89); Glucose,Random 96 mg/dL (74-106); Potassium 4.6 meq/L (3.5-5.1); Sodium 140 meq/L (136-145)
[2018-02-02] MEDS: Ciprofloxacin 500 MG Tablet PO SCH ×2 (09:47→20:33)
[2018-02-02] MEDS: Enoxaparin Inj 30 MG/0.3 ML Syringe SQ SCH ×2 (09:47→20:33)
[2018-02-02] MEDS: Gabapentin 300 MG Capsule PO SCH ×3 (09:47→17:45)
[2018-02-02] MEDS: Famotidine 20 MG Tablet PO SCH ×2 (09:47→20:32)
[2018-02-02] MEDS: amLODIPine 5 MG Tablet PO SCH (09:47)
[2018-02-02] MEDS: Metoprolol Tartrate 25 MG Tablet PO SCH ×2 (09:47→20:32)
[2018-02-02] MEDS: Senna/Docusate Sodium 8.6/50 MG Tablet PO SCH ×2 (09:48→20:32)
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
[2018-02-03] MEDS: Ketorolac Inj 30 MG/ML (IVP) Vial IV.PUSH SCH ×4 (00:48→17:55)
[2018-02-03] MEDS: Enoxaparin Inj 30 MG/0.3 ML Syringe SQ SCH ×2 (09:43→20:49)
[2018-02-03] MEDS: Ciprofloxacin 500 MG Tablet PO SCH ×2 (09:43→20:48)
[2018-02-03] MEDS: Gabapentin 300 MG Capsule PO SCH ×3 (09:43→17:55)
[2018-02-03] MEDS: Famotidine 20 MG Tablet PO SCH ×2 (09:43→20:48)
[2018-02-03] MEDS: Senna/Docusate Sodium 8.6/50 MG Tablet PO SCH ×2 (09:43→20:49)
[2018-02-03] MEDS: Metoprolol Tartrate 25 MG Tablet PO SCH ×2 (09:44→20:49)
[2018-02-03] MEDS: amLODIPine 5 MG Tablet PO SCH (09:44)
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
[2018-02-04] MEDS: Ketorolac Inj 30 MG/ML (IVP) Vial IV.PUSH SCH ×5 (00:13→17:03)
[2018-02-04 04:10] LABS: INR 1.1 Ratio; Prothrombin Time 11.4 sec (9.8-11.6)
[2018-02-04 04:11] LABS: Baso % (Auto) 0.4 % (0.0-2.0); Eos # (Auto) 0.1 th/mm3 (0.0-0.4); Eos % (Auto) 1.4 % (0.0-4.0); Hematocrit 25.9 % (39.0-51.0); Hemoglobin 8.8 gm/dL (13.0-17.0); Lymph # (Auto) 2.3 th/mm3 (1.0-4.8); Mean Corpuscular HGB Conc 33.8 % (32.0-36.0); Mean Corpuscular Hemoglobin 28.9 pg (27.0-34.0); Mean Corpuscular Volume 85.3 fL (80.0-100.0); Mean Platelet Volume 6.7 fL (7.0-11.0); Mono # (Auto) 1.1 th/mm3 (0.0-0.9); Mono % (Auto) 10.8 % (0.0-8.0); Neut # (Auto) 6.8 th/mm3 (1.8-7.7); Neut % (Auto) 65.4 % (16.0-70.0); Platelet Count 749 th/mm3 (150-450); Red Blood Count 3.04 mil/mm3 (4.50-5.90); Red Cell Distribution Width 14.6 % (11.6-17.2); White Blood Count 10.5 th/mm3 (4.0-11.0)
[2018-02-04] MEDS: Metoprolol Tartrate 25 MG Tablet PO SCH ×2 (08:52→21:56)
[2018-02-04] MEDS: Enoxaparin Inj 30 MG/0.3 ML Syringe SQ SCH ×2 (08:52→22:18)
[2018-02-04] MEDS: Gabapentin 300 MG Capsule PO SCH ×3 (08:52→17:07)
[2018-02-04] MEDS: Famotidine 20 MG Tablet PO SCH ×2 (08:52→21:56)
[2018-02-04] MEDS: Senna/Docusate Sodium 8.6/50 MG Tablet PO SCH ×2 (08:52→21:55)
[2018-02-04] MEDS: Ciprofloxacin 500 MG Tablet PO SCH ×2 (08:52→21:56)
[2018-02-04] MEDS: amLODIPine 5 MG Tablet PO SCH (08:52)
[2018-02-04] MEDS ORDERED: Lidocaine PF 1% Inj 5 ML Syringe INFILTRATN ONE (09:44)
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
[2018-02-04] MEDS ORDERED: Bupivacaine/Epinephrine PF Inj 0.5% 10 ML Vial ONE ×3 (11:31→13:03)
[2018-02-04] MEDS ORDERED: fentaNYL Citrate Inj 100 MCG/2 ML Ampul ONE ×2 (14:03)
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
[2018-02-04] MEDS: oxyCODONE/Acetaminophen 10/325 Tablet PO PRN ×2 (17:06→22:17)
[2018-02-05] MEDS: amLODIPine 5 MG Tablet PO SCH (08:29)
[2018-02-05] MEDS: Ciprofloxacin 500 MG Tablet PO SCH ×2 (08:29→21:56)
[2018-02-05] MEDS: Enoxaparin Inj 30 MG/0.3 ML Syringe SQ SCH ×2 (08:30→21:57)
[2018-02-05] MEDS: Metoprolol Tartrate 25 MG Tablet PO SCH ×2 (08:30→21:56)
[2018-02-05] MEDS: Gabapentin 300 MG Capsule PO SCH ×3 (08:30→17:03)
[2018-02-05] MEDS: Famotidine 20 MG Tablet PO SCH ×2 (08:30→21:56)
[2018-02-05] MEDS: Senna/Docusate Sodium 8.6/50 MG Tablet PO SCH ×2 (08:30→22:13)
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
[2018-02-05] MEDS: oxyCODONE/Acetaminophen 10/325 Tablet PO PRN (22:11)
[2018-02-05] MEDS ORDERED: Morphine Inj 30 MG/30 ML PCA.VIAL PCA PRN (22:27)
[2018-02-05] MEDS ORDERED: Naloxone Inj 0.4 MG/ML Vial IV.PUSH PRN (22:27)
[2018-02-06] MEDS: Enoxaparin Inj 30 MG/0.3 ML Syringe SQ SCH ×2 (10:03→21:42)
[2018-02-06] MEDS: Ciprofloxacin 500 MG Tablet PO SCH ×2 (10:03→21:42)
[2018-02-06] MEDS: Metoprolol Tartrate 25 MG Tablet PO SCH ×2 (10:03→21:42)
[2018-02-06] MEDS: amLODIPine 5 MG Tablet PO SCH (10:04)
[2018-02-06] MEDS: Gabapentin 300 MG Capsule PO SCH ×3 (10:04→18:37)
[2018-02-06] MEDS: Senna/Docusate Sodium 8.6/50 MG Tablet PO SCH ×2 (10:04→21:46)
[2018-02-06] MEDS: Famotidine 20 MG Tablet PO SCH ×2 (10:04→21:42)
[2018-02-06] MEDS: oxyCODONE/Acetaminophen 10/325 Tablet PO PRN ×3 (10:05→21:48)
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
[2018-02-07] MEDS: Ciprofloxacin 500 MG Tablet PO SCH ×2 (09:29→22:14)
[2018-02-07] MEDS: Famotidine 20 MG Tablet PO SCH ×2 (09:29→22:14)
[2018-02-07] MEDS: amLODIPine 5 MG Tablet PO SCH (09:29)
[2018-02-07] MEDS: Gabapentin 300 MG Capsule PO SCH ×3 (09:29→18:19)
[2018-02-07] MEDS: Metoprolol Tartrate 25 MG Tablet PO SCH ×2 (09:29→22:14)
[2018-02-07] MEDS: Senna/Docusate Sodium 8.6/50 MG Tablet PO SCH ×2 (09:30→22:14)
[2018-02-07] MEDS: Enoxaparin Inj 30 MG/0.3 ML Syringe SQ SCH ×2 (09:30→22:13)
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
[2018-02-07] MEDS: oxyCODONE/Acetaminophen 10/325 Tablet PO PRN ×2 (15:46→15:48)
[2018-02-08] MEDS: Enoxaparin Inj 30 MG/0.3 ML Syringe SQ SCH ×2 (09:19→20:57)
[2018-02-08] MEDS: amLODIPine 5 MG Tablet PO SCH (09:19)
[2018-02-08] MEDS: Metoprolol Tartrate 25 MG Tablet PO SCH ×2 (09:19→20:57)
[2018-02-08] MEDS: Gabapentin 300 MG Capsule PO SCH ×3 (09:19→17:16)
[2018-02-08] MEDS: Famotidine 20 MG Tablet PO SCH ×2 (09:20→20:57)
[2018-02-08] MEDS: Ciprofloxacin 500 MG Tablet PO SCH (09:20)
[2018-02-08] MEDS: Senna/Docusate Sodium 8.6/50 MG Tablet PO SCH ×2 (10:53→20:57)
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
[2018-02-08] MEDS: oxyCODONE/Acetaminophen 10/325 Tablet PO PRN ×2 (17:15→20:57)
[2018-02-09] MEDS: oxyCODONE/Acetaminophen 10/325 Tablet PO PRN ×3 (01:10→21:08)
[2018-02-09 04:33] LABS: Baso % (Auto) 0.3 % (0.0-2.0); Eos # (Auto) 0.1 th/mm3 (0.0-0.4); Eos % (Auto) 0.9 % (0.0-4.0); Hematocrit 28.9 % (39.0-51.0); Hemoglobin 9.7 gm/dL (13.0-17.0); Lymph # (Auto) 2.1 th/mm3 (1.0-4.8); Lymph % (Auto) 22.4 % (9.0-44.0); Mean Corpuscular HGB Conc 33.7 % (32.0-36.0); Mean Corpuscular Hemoglobin 28.7 pg (27.0-34.0); Mean Corpuscular Volume 85.3 fL (80.0-100.0); Mean Platelet Volume 6.6 fL (7.0-11.0); Mono # (Auto) 1.3 th/mm3 (0.0-0.9); Mono % (Auto) 13.8 % (0.0-8.0); Neut % (Auto) 62.6 % (16.0-70.0); Platelet Count 591 th/mm3 (150-450); Red Blood Count 3.39 mil/mm3 (4.50-5.90); Red Cell Distribution Width 15.9 % (11.6-17.2); White Blood Count 9.5 th/mm3 (4.0-11.0)
[2018-02-09 05:11] LABS: Carbon Dioxide 28.1 meq/L (21.0-32.0); Potassium 3.9 meq/L (3.5-5.1)
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
[2018-02-09] MEDS: Famotidine 20 MG Tablet PO SCH ×2 (09:07→21:08)
[2018-02-09] MEDS: Senna/Docusate Sodium 8.6/50 MG Tablet PO SCH ×2 (09:07→21:08)
[2018-02-09] MEDS: Gabapentin 300 MG Capsule PO SCH ×3 (09:07→17:24)
[2018-02-09] MEDS: Enoxaparin Inj 30 MG/0.3 ML Syringe SQ SCH ×2 (09:07→21:09)
[2018-02-09] MEDS: amLODIPine 5 MG Tablet PO SCH (09:08)
[2018-02-09] MEDS: Metoprolol Tartrate 25 MG Tablet PO SCH ×2 (09:08→21:08)
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
[2018-02-10] MEDS: Enoxaparin Inj 30 MG/0.3 ML Syringe SQ SCH ×2 (08:19→21:58)
[2018-02-10] MEDS: Famotidine 20 MG Tablet PO SCH ×2 (08:19→21:59)
[2018-02-10] MEDS: Gabapentin 300 MG Capsule PO SCH ×3 (08:20→17:38)
[2018-02-10] MEDS: amLODIPine 5 MG Tablet PO SCH (08:22)
[2018-02-10] MEDS: Metoprolol Tartrate 25 MG Tablet PO SCH ×3 (08:22→22:00)
[2018-02-10] MEDS: Senna/Docusate Sodium 8.6/50 MG Tablet PO SCH ×2 (08:23→21:59)
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
[2018-02-11] MEDS: Metoprolol Tartrate 25 MG Tablet PO SCH ×2 (09:10→21:05)
[2018-02-11] MEDS: Senna/Docusate Sodium 8.6/50 MG Tablet PO SCH ×2 (09:10→21:04)
[2018-02-11] MEDS: Enoxaparin Inj 30 MG/0.3 ML Syringe SQ SCH ×2 (09:10→21:05)
[2018-02-11] MEDS: amLODIPine 5 MG Tablet PO SCH (09:10)
[2018-02-11] MEDS: Gabapentin 300 MG Capsule PO SCH ×3 (09:10→18:59)
[2018-02-11] MEDS: Famotidine 20 MG Tablet PO SCH ×2 (09:10→21:04)
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
[2018-02-11] MEDS: oxyCODONE/Acetaminophen 10/325 Tablet PO PRN (13:21)
[2018-02-11] MEDS ORDERED: Mupirocin 2% Nasal Oint Topical Syringe ONE (16:25)
--- NOTE | 2018-02-11 20:00 | P.PN ---
Subjective Interval history: Patient reports minimal pain to the left lower extremity. He does endorse some mild to moderate pain of the left lateral thigh donor site. Physical Exam Vital signs: Vital Signs 02/10/18 20:00 02/11/18 00:00 02/11/18 08:00 Temperature 98.5 F 98.4 F 98.7 F Pulse Rate 106 H 89 105 H Respiratory Rate 20 20 18 Blood Pressure 123/66 117/61 110/57 L Pulse Oximetry 96 98 97 02/11/18 12:00 02/11/18 16:00 Temperature 99.7 F H 98.8 F Pulse Rate 80 85 Respiratory Rate 18 18 Blood Pressure 100/56 L 120/58 L Pulse Oximetry 98 99 Intake & Output 02/11/18 02/11/18 02/12/18 06:59 18:59 06:59 Intake Total 480 / 480 960 / 960 Output Total 300 / 300 1025 / 1025 Balance 180 / 180 -65 / -65 Intake: Oral 480 / 480 960 / 960 Output: Urine 200 / 200 900 / 900 Wound Drainage 125 / 125 Left Lower [place] 125 / 125 Wound Vac Amount 100 / 100 Left Calf 100 / 100 Other: Mode Setting Left Calf Continuous Continuous # Voids 1 Date of Last Bowel Movement 02/10/18 # Bowel Movements 1 Narrative: Left lower extremity wound vacs removed 100% skin graft take No signs surrounding cellulitis - Urinary Catheter Management Indwelling Urethral Catheter Cath placed during this visit: yes, but has since been removed by the nurse Reason for continuing: Hourly intake/output Insertion date: 01/19/18 Removal date: 01/24/18 Results - Labs CBC & Chem 7: 02/09/18 04:18 02/09/18 04:18 Assessment and Plan - Assessment (1) Open wound, lower leg Code(s): S81.809A - Unspecified open wound, unspecified lower leg, initial encounter Status: Acute - Plan Roughly 22-year-old male status post 02/04/2018 split-thickness skin graft from left thigh to left lower leg medial and lateral fasciotomy wounds Nursing to address left lower extremity donor and recipient sites with mupirocin ointment/Xeroform gauze daily Patient instructed to minimize left lower extremity dependency for the next 2-3 weeks to avoid skin graft loss Discharge planning per primary (1) Open wound, lower leg Qualifiers: Encounter type: initial encounter
[2018-02-12] MEDS: oxyCODONE/Acetaminophen 10/325 Tablet PO PRN ×3 (00:54→14:15)
[2018-02-12] MEDS: Enoxaparin Inj 30 MG/0.3 ML Syringe SQ SCH (09:42)
[2018-02-12] MEDS: amLODIPine 5 MG Tablet PO SCH (09:43)
[2018-02-12] MEDS: Senna/Docusate Sodium 8.6/50 MG Tablet PO SCH (09:43)
[2018-02-12] MEDS: Metoprolol Tartrate 25 MG Tablet PO SCH (09:43)
[2018-02-12] MEDS: Famotidine 20 MG Tablet PO SCH (09:43)
[2018-02-12] MEDS: Gabapentin 300 MG Capsule PO SCH ×2 (09:43→14:16)
--- NOTE | 2018-02-12 13:05 | P.DCO ---
- Home Health Nursing Order: Medical education, Signs/symptoms of disease process, Medication education-adverse effect, Wound care and dressing changes (DAILY: LEFT thigh doner siter and LLE skin graft with mupirocin and xeroform then cover and wrap with [place]. DAILY: LEFT groin with saline loaked wet to dry dressings. ), Nursing assessment with vital signs - Certification I have seen patient Harry Calle on 02/12/18. My clinical findings support the need for the requested home health care services because: Limited mobility due to disease progression, Patient has SOB, Deconditioned with increased weakness, Limited ability to care for self, High risk of falls, Infection with risk of complications (requires assistance with daily dressing changes) I certify that my clinical findings support that this patient is homebound because: Post-op weakness, Unsteady gait/balance, Unsafe to leave home unassisted, Non- ambulatory: confined to bed or chair, Unable to use public transportation
[2018-02-12 13:39] VITALS: BP 121/64; PULSE 99; RESP 18; TEMP 97.9; O2SAT 97
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
== END 2018-02-12 17:31 | disposition home health service (06) ==
LOC: NEPI 02:07 → NEDA 05:00 → MERGE 06:05 → EDBD 06:05 → NEDA 06:05 → N03 10:24 → N07 01-23 21:27
PROVIDERS: ADMIT Surgery; ATTEND Surgery

== ENCOUNTER 2018-02-19 00:41 | Inpatient (IN) ==
[2018-02-19] MEDS ORDERED: Morphine Inj 4 MG/ML Vial IV.PUSH ONE (04:41)
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
[2018-02-19 05:04] LABS: Baso % (Auto) 0.4 % (0.0-2.0); Eos # (Auto) 0.2 th/mm3 (0.0-0.4); Eos % (Auto) 2.3 % (0.0-4.0); Hematocrit 30.5 % (39.0-51.0); Hemoglobin 9.9 gm/dL (13.0-17.0); Lymph % (Auto) 26.6 % (9.0-44.0); Mean Corpuscular HGB Conc 32.3 % (32.0-36.0); Mean Corpuscular Hemoglobin 27.5 pg (27.0-34.0); Mean Platelet Volume 6.8 fL (7.0-11.0); Mono # (Auto) 1.1 th/mm3 (0.0-0.9); Mono % (Auto) 14.8 % (0.0-8.0); Neut # (Auto) 4.1 th/mm3 (1.8-7.7); Neut % (Auto) 55.9 % (16.0-70.0); Platelet Count 437 th/mm3 (150-450); Red Blood Count 3.59 mil/mm3 (4.50-5.90); Red Cell Distribution Width 15.9 % (11.6-17.2); White Blood Count 7.3 th/mm3 (4.0-11.0)
[2018-02-19 05:23] LABS: Anion Gap 7 meq/L (5-15); Blood Urea Nitrogen 14 mg/dL (7-18); Calcium 8.6 mg/dL (8.5-10.1); Chloride 108 meq/L (98-107); Glomerular Filtration Rate Greater Than 89 mL/min (>89); Glucose,Random 102 mg/dL (74-106); Potassium 3.7 meq/L (3.5-5.1); Sodium 142 meq/L (136-145)
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
[2018-02-19] MEDS ORDERED: Piperacil/Tazo 3.375 GM Premix 50 ML IV.SIG ONE (05:37)
[2018-02-19] MEDS ORDERED: Bisacodyl 10 MG Supp RECTAL PRN (05:57)
[2018-02-19] MEDS ORDERED: Acetaminophen 325 MG Tablet PO PRN (05:57)
[2018-02-19] MEDS ORDERED: Temazepam 15 MG Capsule PO PRN (05:57)
[2018-02-19] MEDS ORDERED: Vancomycin Consult Pharmacy 1 EACH OTHER SCH (06:00)
[2018-02-19] MEDS ORDERED: Vancomycin Inj 1 GM/200 ML PIGGYBACK IV.SIG SCH (06:00)
[2018-02-19] MEDS: Sod Chloride 0.9% Inj 1,000 ML IV.CONT SCH (06:17)
[2018-02-19] MEDS ORDERED: Vancomycin Inj 2,000 MG in Sodium Chlor 0.9% Inj 500 ML IV.SIG ONE (08:00)
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
[2018-02-19] MEDS: Morphine Inj 4 MG/ML Vial IV.PUSH PRN (11:59)
[2018-02-19] MEDS: Metoprolol Tartrate 25 MG Tablet PO SCH ×2 (12:56→20:36)
[2018-02-19] MEDS: Senna/Docusate Sodium 8.6/50 MG Tablet PO SCH ×2 (12:56→20:36)
[2018-02-19] MEDS: Piperacil/Tazo 3.375 GM Premix 50 ML IV.SIG SCH ×3 (13:00→23:19)
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
[2018-02-19] MEDS: Vancomycin Inj 1,000 MG in Sodium Chlor 0.9% Inj 250 ML IV.SIG SCH (15:00)
--- NOTE | 2018-02-19 16:47 | P.RAD ---
Post Procedure Progress Note - Pre Procedure Diagnosis (1) Abscess of groin, left - Post Procedure Diagnosis (1) Abscess of groin, left - Procedure Information Procedure Date: 02/19/18 Supervising Radiologist: Bruce Ayala Jr, MD Estimated blood loss (mL): 0 Anesthesia: Local - Plan of Activity Patient to Unit: Nursing Unit Patient Condition: Good Additional Comments: US guided aspiration of left groin. Hypoechoic area correlates to the area seen on CT. Aspiration yielded 0.1mL of serous type fluid. Sample to microbiology. No liquified abscess to this point. See PACS Report for procedural detail/treatment.
[2018-02-20] MEDS: Vancomycin Inj 1,000 MG in Sodium Chlor 0.9% Inj 250 ML IV.SIG SCH ×3 (00:07→16:58)
[2018-02-20] MEDS: Sod Chloride 0.9% Inj 1,000 ML IV.CONT SCH ×3 (00:10→08:50)
[2018-02-20] MEDS: Morphine Inj 4 MG/ML Vial IV.PUSH PRN ×2 (03:17→08:51)
[2018-02-20 06:15] LABS: Baso % (Auto) 0.3 % (0.0-2.0); Eos # (Auto) 0.1 th/mm3 (0.0-0.4); Eos % (Auto) 2.3 % (0.0-4.0); Hematocrit 28.5 % (39.0-51.0); Hemoglobin 9.6 gm/dL (13.0-17.0); Lymph # (Auto) 1.3 th/mm3 (1.0-4.8); Mean Corpuscular HGB Conc 33.7 % (32.0-36.0); Mean Corpuscular Hemoglobin 28.6 pg (27.0-34.0); Mean Corpuscular Volume 84.9 fL (80.0-100.0); Mean Platelet Volume 6.6 fL (7.0-11.0); Mono # (Auto) 0.9 th/mm3 (0.0-0.9); Mono % (Auto) 14.9 % (0.0-8.0); Neut # (Auto) 3.6 th/mm3 (1.8-7.7); Neut % (Auto) 60.5 % (16.0-70.0); Platelet Count 382 th/mm3 (150-450); Red Blood Count 3.36 mil/mm3 (4.50-5.90); Red Cell Distribution Width 15.8 % (11.6-17.2)
[2018-02-20] MEDS: Piperacil/Tazo 3.375 GM Premix 50 ML IV.SIG SCH ×3 (06:19→17:26)
[2018-02-20 06:34] LABS: Anion Gap 7 meq/L (5-15); Blood Urea Nitrogen 6 mg/dL (7-18); Calcium 8.4 mg/dL (8.5-10.1); Carbon Dioxide 26.8 meq/L (21.0-32.0); Chloride 108 meq/L (98-107); Glomerular Filtration Rate Greater Than 89 mL/min (>89); Glucose,Random 89 mg/dL (74-106); Potassium 3.6 meq/L (3.5-5.1); Sodium 142 meq/L (136-145)
[2018-02-20] MEDS ORDERED: Pharmacy Ordered Lab Info OTHER ONE (07:45)
[2018-02-20] MEDS: Metoprolol Tartrate 25 MG Tablet PO SCH ×2 (08:52→21:04)
[2018-02-20] MEDS: Senna/Docusate Sodium 8.6/50 MG Tablet PO SCH ×2 (08:53→21:06)
[2018-02-20] MEDS ORDERED: Acetaminophen 325 MG Tablet PO PRN (11:43)
[2018-02-20] MEDS ORDERED: Naloxone Inj 0.4 MG/ML Vial IV.PUSH PRN (11:43)
--- NOTE | 2018-02-20 11:47 | P.PN ---
Subjective Interval history: Follow-up left upper thigh fluid collection. Status post aspiration by IR yesterday. He is doing okay. Physical Exam Vital signs: Vital Signs 02/19/18 12:00 02/19/18 12:49 02/19/18 16:00 Temperature 98.6 F 98.6 F Pulse Rate 92 H 93 H Respiratory Rate 18 14 18 Blood Pressure 136/72 121/81 Pulse Oximetry 99 100 02/19/18 20:00 02/20/18 00:00 02/20/18 04:00 Temperature 98.7 F 98.6 F 98.5 F Pulse Rate 82 107 H 84 Respiratory Rate 18 16 16 Blood Pressure 114/61 120/76 121/78 Pulse Oximetry 97 100 99 02/20/18 08:03 Temperature 98.3 F Pulse Rate 76 Respiratory Rate 20 Blood Pressure 121/60 Pulse Oximetry 95 Intake & Output 02/19/18 02/20/18 02/20/18 18:59 06:59 18:59 Intake Total 1050 / 1050 600 / 600 1890 / 1890 Output Total 1600 / 1600 Balance 1050 / 1050 -1000 / -1000 1890 / 1890 Intake: IV 1050 / 1050 600 / 600 1890 / 1890 NS Inj 1,000 ML @ 125 mls/hr IV 1000 / 1000 1000 / 1000 .CONT .Q8H [facility] Rx#:[id number] Zosyn 3.375 GM Premix 50 ML @ 50 / 50 100 / 100 50 / 50 100 mls/hr IV.SIG Q6H [facility] Rx#: [id number] Vancomycin Inj 1,000 MG In NS 500 / 500 250 / 250 Inj 250 ML @ 200 mls/hr IV.SIG Q8H [facility] Rx#:[id number] Output: Urine 1600 / 1600 Other: Date of Last Bowel Movement 02/18/18 Narrative: GENERAL: Well-developed obese in no distress SKIN: Warm and dry. Dry dressing over left groin left thigh and left lower extremity CARDIOVASCULAR: Regular rate and rhythm. RESPIRATORY: No accessory muscle use. Clear to auscultation. Breath sounds equal bilaterally. GASTROINTESTINAL: Abdomen soft, non-tender, nondistended. MUSCULOSKELETAL: Extremities without clubbing, cyanosis, or edema. No obvious deformities. NEUROLOGICAL: Awake and alert. No obvious cranial nerve deficits. Motor grossly within normal limits. Five out of 5 muscle strength in the arms and legs. Normal speech. Results - Labs CBC & Chem 7: 02/20/18 05:44 02/20/18 05:44 Laboratory Results - last 24 hr 02/20/18 02/20/18 02/20/18 05:44 05:44 08:45 WBC 6.0 RBC 3.36 L Hgb 9.6 L Hct 28.5 L MCV 84.9 MCH 28.6 MCHC 33.7 RDW 15.8 Plt Count 382 MPV 6.6 L Neut % (Auto) 60.5 Lymph % (Auto) 22.0 [place] % (Auto) 14.9 H Eos % (Auto) 2.3 Baso % (Auto) 0.3 Neut # (Auto) 3.6 Lymph # (Auto) 1.3 [place] # (Auto) 0.9 Eos # (Auto) 0.1 Baso # (Auto) 0.0 WBC Differential . Differential Comment Auto diff final Sodium 142 Potassium 3.6 Chloride 108 H Carbon Dioxide 26.8 Anion Gap 7 BUN 6 L Creatinine 0.85 Estimated GFR Greater than 89 Random Glucose 89 Calcium 8.4 L Vancomycin Trough 8.8 Microbiology 02/19/18 16:40 Fluid - Other Gram Stain - Final - Procedures Aspiration of left upper thigh fluid collection by interventional radiology Assessment and Plan - Plan 22-year-old male presenting with persistent wound left thigh area CT scan shows fluid collection Abscess versus hematoma left thigh status post aspiration. Continue IV antibiotics with vancomycin and Zosyn and pain management with morphine sulfate. Add Lortab patient has been counseled regarding narcotics. Follow-up cultures. Wound care. Hypertension. Continue Lopressor and restart Norvasc. Continue to monitor DVT prophylaxis with SCD and early ambulation Discharge Planning: [facility]
[2018-02-20] MEDS ORDERED: Silver Nitrate/Potassium Nitrate Applicator Sticks TOPICAL ONE (16:30)
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
[2018-02-21] MEDS: Piperacil/Tazo 3.375 GM Premix 50 ML IV.SIG SCH ×3 (00:53→12:45)
[2018-02-21] MEDS: Vancomycin Inj 1,000 MG in Sodium Chlor 0.9% Inj 250 ML IV.SIG SCH ×2 (01:46→08:08)
[2018-02-21] MEDS: Senna/Docusate Sodium 8.6/50 MG Tablet PO SCH (08:11)
[2018-02-21] MEDS: Metoprolol Tartrate 25 MG Tablet PO SCH (08:12)
[2018-02-21] MEDS ORDERED: amLODIPine 5 MG Tablet PO SCH (09:00)
--- NOTE | 2018-02-21 13:22 | P.PNIM ---
Subjective Interval history: No overnight events, no fever, left groin pain stable. Physical Exam Vital signs: Vital Signs 02/20/18 16:00 02/20/18 16:44 02/20/18 18:21 Temperature 98.9 F Pulse Rate 77 86 Respiratory Rate 18 16 Blood Pressure 123/69 Pulse Oximetry 100 02/20/18 20:00 02/21/18 00:00 02/21/18 04:00 Temperature 99.0 F 99 F 98.5 F Pulse Rate 90 85 82 Respiratory Rate 18 18 18 Blood Pressure 133/66 119/65 127/82 Pulse Oximetry 97 97 98 02/21/18 08:00 Temperature 98.6 F Pulse Rate 73 Respiratory Rate 16 Blood Pressure 120/55 L Pulse Oximetry 98 Intake & Output 02/20/18 02/21/18 02/21/18 18:59 06:59 18:59 Intake Total 3240 / 3240 300 / 300 300 / 300 Output Total 450 / 450 Balance 3240 / 3240 300 / 300 -150 / -150 Weight 113.2 kg Intake: IV 3240 / 3240 300 / 300 300 / 300 NS Inj 1,000 ML @ 125 mls/hr IV 1999 / 1999 .CONT .Q8H M[facility]DISON Rx#:[id number] Zosyn 3.375 GM Premix 50 ML @ 150 / 150 50 / 50 50 / 50 100 mls/hr IV.SIG Q6H [facility] Rx#: [id number] Vancomycin Inj 1,000 MG In NS 500 / 500 250 / 250 250 / 250 Inj 250 ML @ 200 mls/hr IV.SIG Q8H [facility] Rx#:[id number] Output: Urine 450 / 450 Other: Post Void Residual 800 Date of Last Bowel Movement 02/20/18 Narrative: GENERAL: Well-developed obese in no distress SKIN: Warm and dry. Dry dressing over left groin left thigh and left lower extremity, no bleeding. No tenderness. CARDIOVASCULAR: Regular rate and rhythm. RESPIRATORY: No accessory muscle use. Clear to auscultation. Breath sounds equal bilaterally. GASTROINTESTINAL: Abdomen soft, non-tender, nondistended. MUSCULOSKELETAL: Extremities without clubbing, cyanosis, or edema. No obvious deformities. NEUROLOGICAL: Awake and alert. No obvious cranial nerve deficits. Motor grossly within normal limits. Five out of 5 muscle strength in the arms and legs. Normal speech. Results - Labs CBC & Chem 7: 02/20/18 05:44 02/20/18 05:44 Microbiology 02/19/18 16:40 Fluid - Other Gram Stain - Final 02/19/18 16:40 Fluid - Other Body Fluid Culture - Preliminary No growth in 48 hours - Imaging Impressions Guidance Needle Placement Ultrasound 02/19/18 00:00 CONCLUSION: 1. Minimal fluid obtained. This was sent for culture. - Procedures Aspiration of left upper thigh fluid collection by interventional radiology Assessment and Plan - Plan 22-year-old male presenting with persistent wound left thigh area CT scan shows fluid collection Abscess versus hematoma left thigh status post aspiration. Seen by vascular surgery, likely secondary to old organized hematoma. Status post attempted aspiration, nothing was aspirated. Cultures remain negative, stop antibiotics. Continue wound care as outpatient. Cleared by Dr. Haynes for discharge. Hypertension. Continue Lopressor and Norvasc. DVT prophylaxis with SCD and early ambulation Discharge Planning: [facility]
--- NOTE | 2018-02-21 13:47 | P.DCO ---
- Home Health Nursing Order: Wound care and dressing changes, Nursing assessment with vital signs - Certification I have seen patient Harry Calle on 02/21/18. My clinical findings support the need for the requested home health care services because: Limited mobility due to disease progression I certify that my clinical findings support that this patient is homebound because: Post-op weakness
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
[2018-02-21 14:18] VITALS: RESP 20
[2018-02-21 16:25] VITALS: BP 134/67; PULSE 87; TEMP 98.7; O2SAT 97
[2018-02-22] MEDS ORDERED: Pharmacy Ordered Lab Info OTHER ONE (07:45)
== END 2018-02-21 17:00 | disposition home or self-care (01) ==
LOC: NEPE 00:41 → MERGE 05:54 → NEDA 05:54 → NEPGCP 09:42 → N05 02-20 16:45
PROVIDERS: ADMIT Hospitalist; ATTEND Hospitalist